=== PATIENT | female | born 1960 | race Caucasian/White ===

== ENCOUNTER 2018-07-19 12:19 | Emergency (ER) | payer OTHER | END 2018-07-19 14:44 | disposition home or self-care (01) | LOC: M ED 12:19 | DX: S63.631A Sprain of interphalangeal joint of left index finger, initial encounter (principal); W23.0XXA Caught, crushed, jammed, or pinched between moving objects, initial encounter; Y92.018 Other place in single-family (private) house as the place of occurrence of the external cause | CPT/HCPCS: 73140 ==